=== PATIENT | male | born 1995 | race Caucasian/White ===

== ENCOUNTER → 2017-06-30 16:18 | Emergency (ER) | payer OTHER ==
[~2017-06-30 16:18] MED LIST: Morphine INJ* 4 MG/ML 1 ML SYRINGE IV ONE; Morphine INJ* 4 MG/ML 1 ML SYRINGE ONE; Ondansetron INJ* 2 MG/ML VIAL IV ONE; Ondansetron INJ* 2 MG/ML VIAL ONE
--- NOTE | 2017-06-30 17:03 | RAD ---
HISTORY: Trauma, shoulder pain COMPARISONS: July 06, 2015 VIEWS: 2, frontal and outlet views of the right shoulder FINDINGS: BONE DENSITY: Normal. BONES: There is no displaced fracture. JOINTS: There is no arthropathy. ALIGNMENT: There is anterior dislocation of the humerus with respect to the glenoid fossa SOFT TISSUES: Unremarkable. OTHER FINDINGS: None. IMPRESSION: ANTERIOR RIGHT SHOULDER DISLOCATION
--- NOTE | 2017-06-30 18:11 | RAD ---
HISTORY: Post reduction of the right shoulder COMPARISONS: June 30, 2017 at 3:44 PM VIEWS: 2, frontal and outlet views of the right shoulder at 4:39 PM FINDINGS: BONE DENSITY: Normal. BONES: There is no displaced fracture. JOINTS: There is no arthropathy. ALIGNMENT: There has been interval reduction of the right humeral head dislocation SOFT TISSUES: Unremarkable. OTHER FINDINGS: None. IMPRESSION: INTERVAL REDUCTION OF RIGHT SHOULDER DISLOCATION
[2017-06-30 18:39] VITALS: BP 134/70
--- NOTE | 2017-07-07 22:13 | ED ---
Peter Aranda SooYoung, scribed for Les Whitaker MD on 06/30/17 at 1651 . Upper Extremity Pain - HPI Summary HPI Summary: A 22 y/o M YAA presents to ED with R shoulder pain onset approx 1545. PMHx: shoulder dislocations. Pt was playing football with friends and he collided with another player. He states he also hit his chin, denies LOC. Associated sx: R small finger and R ring finger numbness. Pt last drank this afternoon, last ate around 1100. - History of Current Complaint Chief Complaint: EDShoulderClavicAung Stated Complaint: POSS DISLOCATED SHOULDER Time Seen by Provider: 06/30/17 16:40 Hx Obtained From: Patient Mechanism Of Injury: Direct Blow Onset/Duration: Traumatic, Still Present Timing: Constant Severity Initially: Moderate Severity Currently: Moderate - 7 out of 10 Pain Location: Shoulder Associated Signs & Symptoms: Positive: Numbness/Tingling - R pinky and R ring finger - Allergies/Home Medications Allergies/Adverse Reactions: Allergies Allergy/AdvReac Type Severity Reaction Status Date / Time No Known Allergies Allergy Verified 06/30/17 16:19 PMH/Surg Hx/FS Hx/Imm Hx Previously Healthy: Yes Respiratory History: Denies: Hx Chronic Obstructive Pulmonary Disease (COPD) Sensory History: Denies: Hx Eye Prosthesis, Hx Legally Blind Opthamlomology History: Denies: Hx Eye Prosthesis, Hx Legally Blind Infectious Disease History: Denies: Traveled Outside the [place] in Last 30 Days - Social History Occupation: Student Lives: With Family - roommates Alcohol Use: Occasionally Hx Substance Use: No Substance Use Type: Reports: None Hx Tobacco Use: No Smoking Status (MU): Never Smoked Tobacco Review of Systems Negative: Fever, Chills Negative: Erythema Negative: Sore Throat Negative: Chest Pain Negative: Shortness Of Breath, Cough Negative: Abdominal Pain, Vomiting, Nausea Negative: dysuria, hematuria Positive: Other - pos: R shoulder pain. Negative: Edema Negative: Rash Neurological: Other - neg: dizziness Positive: Numbness - in R hand fingers All Other Systems Reviewed And Are Negative: Yes Physical Exam - Summary Physical Exam Summary: Constitutional: Well-developed, Well-nourished, Alert. (-) Distressed Skin: Warm, Dry HENT: Normocephalic; Atraumatic Eyes: Conjunctiva normal Neck: Musculoskeletal ROM normal neck. (-) JVD, (-) Stridor, (-) Tracheal deviation Cardio: Rhythm regular, rate normal, Heart sounds normal; Intact distal pulses; The pedal pulses are 2+ and symmetric. Radial pulses are 2+ and symmetric. (-) Murmur Pulmonary/Chest wall: Effort normal. (-) Respiratory distress, (-) Wheezes, (-) Rales Abd: Soft, (-) Tenderness, (-) Distension, (-) Guarding, (-) Rebound Musculoskeletal: (-) Edema. Loss of deltoid prominence in R shoulder; Distal sensation intact Lymph: (-) Cervical adenopathy Neuro: Alert, Oriented x3 Psych: Mood and affect Normal Triage Information Reviewed: Yes Vital Signs On Initial Exam: Initial Vitals Temp Pulse Resp BP Pulse Ox 96.5 F 73 18 131/110 100 06/30/17 16:19 06/30/17 16:19 06/30/17 16:19 06/30/17 16:19 06/30/17 16:19 Vital Signs Reviewed: Yes Procedures - Joint Reduction Joint Reduction Site: shoulder (R) - external rotation method Conscious Sedation: No Reduction Attempts: 1 Pre-Procedure NV Exam: Yes - distal sensation intact before and after procedure Diagnostics - Vital Signs Vital Signs Temp Pulse Resp BP Pulse Ox 06/30/17 16:19 96.5 F 73 18 131/110 100 - Laboratory Lab Statement: Any lab studies that have been ordered have been reviewed, and results considered in the medical decision making process. - Radiology Shoulder XR Xray Interpretation: Positive (See Comments) - IMPRESSION: anterior R shoulder dislocation. ED physician has reviewed this radiology report and agrees Radiology Interpretation Completed By: Radiologist Shoulder XR 2 Xray Interpretation: Positive (See Comments) - IMPRESSION: INTERVAL REDUCTION OF RIGHT SHOULDER DISLOCATION. ED physician has reviewed this radiology report and agrees Radiology Interpretation Completed By: Radiologist Course/Dx - Course Course Of Treatment: Pt is a 22 y/o M BIBA presenting with R shoulder pain onset approx 1545. PMHx: shoulder dislocations. Pt was playing football with friends and he collided with another player. He states he also hit his chin, denies LOC. Associated sx: R small finger and R ring finger numbness. Pt last drank this afternoon, last ate around 1100. Pt given morphine and zofran in ED. Shoulder XR shows anterior R shoulder dislocation. Second XR shows " INTERVAL REDUCTION OF RIGHT SHOULDER DISLOCATION.". Will D/C home without meds to f/u with orthro. - Diagnoses Provider Diagnoses: reduction of shoulder Discharge - Discharge Plan Condition: Stable Disposition: HOME Patient Education Materials: Shoulder Dislocation (ED) Referrals: Non Staff,Doctor [Primary Care Provider] - [facility] [place] [facility] [Outside] Roverto Betancur MD [Medical Doctor] - 3 Days Additional Instructions: Follow up with Dr. Betancur ortho, in 2-3 days for follow-up. Return to the emergency department for changing or worsening or persistent symptoms. The documentation as recorded by the Peter anglin SooYoung accurately reflects the service I personally performed and the decisions made by , Les Whitaker MD.
== END | disposition home or self-care (01) ==
LOC: ED 16:18
DX: S43.004A Unspecified dislocation of right shoulder joint, initial encounter (principal); W51.XXXA Accidental striking against or bumped into by another person, initial encounter; Y93.61 Activity, american tackle football; Y92.9 Unspecified place or not applicable
CPT/HCPCS: 23650; 96374; 96375; 99283; J2270; J2405

== ENCOUNTER 2017-07-01 10:16 | Emergency (ER) | payer OTHER ==
[2017-07-01] MEDS ORDERED: Ibuprofen TAB* 600 MG PO ONE (10:36)
--- NOTE | 2017-07-01 11:11 | RAD ---
HISTORY: Post reduction COMPARISONS: None VIEWS: 4, Frontal internal rotation, external rotation, outlet, and axillary views of the right shoulder FINDINGS: BONE DENSITY: Normal. BONES: There is minimal lucency of the inferior glenoid. JOINTS: There is no arthropathy. ALIGNMENT: There is no dislocation. SOFT TISSUES: Unremarkable. OTHER FINDINGS: None. IMPRESSION: MINIMAL LUCENCY OF THE INFERIOR GLENOID WHICH MAY REFLECT A NONDISPLACED FRACTURE GIVEN THE HISTORY OF DISLOCATION.
[2017-07-01 13:42] VITALS: BP 139/87
--- NOTE | 2017-07-07 21:49 | ED ---
Jessica Aranda Alfonso, scribed for Les Whitaker MD on 07/01/17 at 1154 . Upper Extremity Pain - HPI Summary HPI Summary: This patient is a 22 year old M presenting to [facility] with a chief complaint of right shoulder pain since yesterday. He was seen yesterday at [facility] for this injury sustained while playing football. The pain is currently in the front of the shoulder. The patient rates the pain 4/10 in severity. Symptoms aggravated by movement. Symptoms alleviated by ice. Patient denies hand numbness, and hand tingling. - History of Current Complaint Chief Complaint: EDExtremityUpper Stated Complaint: RT SHOULDER PAIN/SWOLLEN/WEAK Time Seen by Provider: 07/01/17 10:34 Hx Obtained From: Patient Onset/Duration: Started Days Ago - yesterday, Traumatic, Still Present Timing: Constant Severity Initially: Moderate Severity Currently: Moderate Pain Location: Shoulder - R Aggravating Factor(s): Movement Alleviating Factor(s): Ice Associated Signs & Symptoms: Positive: Other - Patient denies hand numbness, and hand tingling. - Allergies/Home Medications Allergies/Adverse Reactions: Allergies Allergy/AdvReac Type Severity Reaction Status Date / Time No Known Allergies Allergy Verified 07/01/17 10:21 PMH/Surg Hx/FS Hx/Imm Hx Sensory History: Denies: Hx Deafness Opthamlomology History: Denies: Hx Legally Blind Infectious Disease History: No Infectious Disease History: Denies: Traveled Outside the [place] in Last 30 Days - Family History Known Family History: Negative: Cardiac Disease - Social History Alcohol Use: Weekly Alcohol Amount: weekends 3-4 drinks a night over the weekend Substance Use Type: Reports: None Smoking Status (MU): Never Smoked Tobacco Review of Systems Negative: Fever, Chills Negative: Erythema Negative: Sore Throat Negative: Chest Pain Negative: Shortness Of Breath, Cough Negative: Abdominal Pain, Vomiting, Nausea Negative: dysuria, hematuria Positive: Other - Right shoulder pain.. Negative: Myalgia, Edema Negative: Rash Neurological: Other - Negative dizziness, hand numbness, and hand tingling. All Other Systems Reviewed And Are Negative: Yes Physical Exam Triage Information Reviewed: Yes Vital Signs On Initial Exam: Initial Vitals Temp Pulse Resp BP Pulse Ox 98.5 F 69 16 130/61 96 07/01/17 10:21 07/01/17 10:21 07/01/17 10:21 07/01/17 10:21 07/01/17 10:21 Vital Signs Reviewed: Yes Appearance: Positive: Well-Appearing, No Pain Distress Skin: Positive: Warm, Dry Eyes: Positive: Conjunctiva Clear Neck: Positive: Other: - Musculoskeletal ROM normal neck. (-) JVD, (-) Stridor, (-) Tracheal deviation, (-) Cervical adenopathy Respiratory/Lung Sounds: Positive: Other - Effort normal. (-) Respiratory distress, (-) Wheezes, (-) Rales Cardiovascular: Positive: Other - Rhythm regular, rate normal, Heart sounds normal; Intact distal pulses; The pedal pulses are 2+ and symmetric. Radial pulses are 2+ and symmetric. (-) Murmur Abdomen Description: Positive: Other: - Non Tender, Soft, (-) Distension, (-) Guarding, (-) Rebound Musculoskeletal: Positive: Other - Tender with external rotation of the right shoulder. Distal sensations and pulses intact.. Negative: Edema Left, Edema Right Neurological: Positive: Alert, Oriented to Person Place, Time Psychiatric: Positive: Affect/Mood Appropriate Diagnostics - Vital Signs Vital Signs Temp Pulse Resp BP Pulse Ox 07/01/17 10:31 98.5 F 88 16 135/77 100 07/01/17 10:21 98.5 F 69 16 130/61 96 - Laboratory Lab Statement: Any lab studies that have been ordered have been reviewed, and results considered in the medical decision making process. Course/Dx - Course Assessment/Plan: This patient is a 22 year old M presenting to [facility] with a chief complaint of right shoulder pain since yesterday. He was seen yesterday at [facility] for this injury sustained while playing football. The pain is currently in the front of the shoulder. The patient rates the pain 4/10 in severity. Symptoms aggravated by movement. Symptoms alleviated by ice. Patient denies hand numbness, and hand tingling. Shoulder X-Ray reveals MINIMAL LUCENCY OF THE INFERIOR GLENOID WHICH MAY REFLECT A NONDISPLACED FRACTURE GIVEN THE HISTORY OF DISLOCATION. ED physician has reviewed this radiology report and agrees. In the ED course the patient was given Motrin. Patient will be discharged with prescription for Toradol and follow up from PCP and orthopedics. The patient is agreeable with this plan. - Diagnoses Provider Diagnoses: Glenoid fracture of shoulder Discharge - Discharge Plan Condition: Stable Disposition: HOME Prescriptions: traMADol TAB* [Ultram*] 50 mg PO Q6HR PRN #10 tab MDD 4 PRN Reason: Pain - Moderate To Severe Patient Education Materials: Scapular Fracture (ED) Referrals: [facility] [Primary Care Provider] - 3 Days Kieran Kelly MD [Medical Doctor] - 3 Days The documentation as recorded by the Jessica anglin Alfonso accurately reflects the service I personally performed and the decisions made by Julianne srivastava Jerry, MD.
== END 2017-07-01 13:00 | disposition home or self-care (01) ==
LOC: ED 10:16
DX: S42.141A Displaced fracture of glenoid cavity of scapula, right shoulder, initial encounter for closed fracture (principal); X58.XXXA Exposure to other specified factors, initial encounter; Y93.61 Activity, american tackle football; Y92.9 Unspecified place or not applicable
CPT/HCPCS: 99282; A9270-GY